=== PATIENT | female | born 1970 | race Two or more races ===

== ENCOUNTER → 2018-04-15 | Day surgery (SDC) | payer OTHER ==
--- NOTE | 2018-04-16 15:22 | OP ---
DATE OF OPERATION: 04/15/2018 PREOPERATIVE DIAGNOSIS: Abnormal left mammography. POSTOPERATIVE DIAGNOSIS: Abnormal left mammography. PROCEDURE: Left breast stereotactic needle biopsy with clips x2. SURGEON: Graciela Ivy MD ANESTHESIA: Local. COMPLICATIONS: None. This was a sterile procedure. INDICATIONS FOR PROCEDURE: Patient presented with a screening mammogram that noted multiple areas of calcifications, but most specifically clustering in the lower inner and upper left breast. A biopsy of both of these was recommended by the radiologist. I have reviewed the images and agree. The procedure of a left breast stereotactic needle biopsy with clips x2 was discussed and all the questions answered. PROCEDURE IN DETAIL: Patient was brought to [facility]. Pranav Cotton, laid prone on the Lorad table. First the calcifications in the lower inner left breast were identified, and the caudal approach was used. Once the calcifications were identified, a sterile prep was obtained, a target was chosen, and there was a positive stroke margin. Using Betadine and 1% lidocaine, a 9-gauge Suros device was used to take several cores from this area. Cores had calcifications within them. These were handled with the usual calcification protocol. A bar-shaped clip was deployed in the area. Hemostasis was assured with direct pressure, and the incision was closed with Steri-Strips. Next, the machine was repositioned, and using the cranial approach, the calcifications in the upper left breast were identified. A sterile prep was obtained, a target was chosen, and there was a positive stroke margin. Using Betadine and 1% lidocaine, a 9-gauge Suros device, a new needle was used to take several cores from this area. Cores had calcifications within them. These were handled with the usual calcification protocol. A oval-shaped clip was deployed in the area. Hemostasis was assured with direct pressure, and the incision was closed with Steri-Strips. She tolerated the procedure well and left the breast imaging center in good condition. GRACIELA IVY M.D. [id number]
--- NOTE | 2018-04-16 17:06 | PATH ---
Surgical Pathology Report Patient Name: AAKASH POOLE [facility]. Rec. #: [id number] /Age/Gender: 1970 (Age: 47) / F Account: [id number] Location: [facility] Taken: 04/15/2018 Received: 04/15/2018 Reported: 04/16/2018 Physicians: Tawny Hu M.D. Specimen(s) Received A: BREAST, LEFT, WITH CALCIFICATIONS, SITE 1, LOWER INNER QUADRANT B: BREAST, LEFT, WITHOUT CALCIFICATIONS, SITE 1, LOWER INNER QUADRANT C: BREAST, LEFT, WITH CALCIFICATIONS, SITE 2, UPPER D: BREAST, LEFT, WITHOUT CALCIFICATIONS, SITE 2, UPPER Clinical History Nonpalpable lesion Mammographic findings: Microcalcification, suspicious Site 1 = lower inner quadrant Site 2 = upper Final Diagnosis A. BREAST, LEFT, WITH CALCIFICATIONS, SITE 1, LOWER INNER QUADRANT, STEREOTACTIC CORE BIOPSY: BENIGN BREAST PARENCHYMA WITH STROMAL FIBROSIS, MICROCYSTS, SCLEROSING ADENOSIS, COLUMNAR CELL CHANGES, AND ASSOCIATED MICROCALCIFICATIONS. B. BREAST, LEFT, WITHOUT CALCIFICATIONS, SITE 1, LOWER INNER QUADRANT, STEREOTACTIC CORE BIOPSY: BENIGN BREAST PARENCHYMA WITH STROMAL FIBROSIS, MICROCYSTS, SCLEROSING ADENOSIS, COLUMNAR CELL CHANGES, AND ASSOCIATED MICROCALCIFICATIONS. C. BREAST, LEFT, WITH CALCIFICATIONS, SITE 2, UPPER, STEREOTACTIC CORE BIOPSY: BENIGN BREAST PARENCHYMA WITH STROMAL FIBROSIS, MICROCYSTS, FOCAL USUAL DUCTAL HYPERPLASIA, SCLEROSING ADENOSIS, COLUMNAR CELL CHANGES, AND ASSOCIATED MICROCALCIFICATIONS. D. BREAST, LEFT, WITHOUT CALCIFICATIONS, SITE 2, UPPER, STEREOTACTIC CORE BIOPSY: BENIGN BREAST PARENCHYMA WITH STROMAL FIBROSIS, MICROCYSTS, SCLEROSING ADENOSIS, FOCAL COLUMNAR CELL CHANGES, AND ASSOCIATED MICROCALCIFICATIONS. Electronically Signed Bebe Juan M.D. Gross Description A. Received in formalin labeled "left breast with calcifications site 1 lower inner," are 4 molina-yellow, cylindrical portions of fibroadipose tissue ranging from 1.4-2.2 cm in length and averaging 0.3 cm in diameter. The specimens are submitted in toto in one cassette. B. Received in formalin labeled "left breast without calcification 1 lower inner," are 5 molina-yellow, cylindrical portions of fibroadipose tissue ranging from 0.6-2.7 cm in length and averaging 0.3 cm in diameter. The specimens are submitted in toto in one cassette. C. Received in formalin labeled "left breast with calcifications site 2 upper" are 5 molina-yellow, cylindrical portions of fibroadipose tissue ranging from 0.6-3.6 cm in length and averaging 0.2 cm in diameter. The specimens are submitted in toto in one cassette. D. Received in formalin labeled "left breast without calcifications site 2 upper," are 6 molina-yellow, cylindrical portions of fibroadipose tissue ranging from 0.6-3.5 cm in length and averaging 0.2 cm in diameter. The specimens are submitted in toto in one cassette. Time to formalin fixation: 5 minutes Total formalin fixation time: Approximately 8 hours. 04/15/2018 [facility]04/15/2018
== END | disposition home or self-care (01) ==
LOC: FMAMMOTONE 08:21
PROVIDERS: ATTEND Surgery
PROC: 0HBU3ZX Excision of Left Breast, Percutaneous Approach, Diagnostic (ICD-10-PCS; principal; 2018-04-15)
DX: N60.32 Fibrosclerosis of left breast (principal); N60.12 Diffuse cystic mastopathy of left breast; N60.22 Fibroadenosis of left breast; N60.82 Other benign mammary dysplasias of left breast; N64.89 Other specified disorders of breast; R92.8 Other abnormal and inconclusive findings on diagnostic imaging of breast
CPT/HCPCS: 19081; 19082; 87899; 88305-TC; A4648